=== PATIENT | male | born 2000 | race Caucasian/White ===

== ENCOUNTER 2024-04-11 00:26 | Observation (INO) ==
[2024-04-11] MEDS: OPTIRAY 320 100ml IV ONE (00:52)
--- NOTE | 2024-04-11 00:53 | Emergency Department Note ---
Impression & Plan Acute appendicitis, Abdominal pain ED Provider Note NAME: MINNIE ALEJANDRA AGE: 23 SEX: M : 2000 ARRIVES VIA: Walk-In INFORMANT: Patient, ED PROVIDER(S): Bi Garibay DO CHIEF COMPLAINT: Abdominal pain HPI: The patient is a 23-year-old male who presented to the emergency department for an evaluation of abdominal pain. The patient started having abdominal pain earlier this evening. The pain became worse. The patient presented to the emergency department for further evaluation. He denies having any rectal bleeding. He said some nausea but no vomiting. The pain worsens with ambulation as well as palpation on the right lower quadrant. The patient still has appendix. He states he had a similar episode a few weeks ago which did seem to resolve on its own. He was not seen at that time and had no imaging or laboratory studies. ROS: See above HPI for pertinent positives & negatives. A total of 10 systems reviewed and were otherwise negative. PAST MEDICAL HISTORY: See Below PAST SURGICAL HISTORY: See Below FAMILY HISTORY: See Below SOCIAL HISTORY: See Below HOME MEDICATIONS: See Below ALLERGIES: See Below VITALS: See Below PHYSICAL EXAMINATION: GENERAL: The patient is awake and alert. The patient is very anxious and appears to be uncomfortable. EYES: The conjunctivae are clear. The pupils are round and reactive. EARS, NOSE, MOUTH AND THROAT: The nose is without any evidence of any deformity. NECK: The neck is nontender and supple. RESPIRATORY: Normal respiratory effort is noted there is no evidence of wheezing rhonchi or rales CARDIOVASCULAR: Regular rate and rhythm noted there no murmurs rubs or gallops normal S1 normal S2. GASTROINTESTINAL: The abdomen was nondistended. There is tenderness in right lower quadrant with guarding in the right lower quadrant. MUSCULOSKELETAL/EXTREMITIES: There is no evidence of gross deformity full range of motion is noted in the hips and shoulders. SKIN: There is no obvious evidence of any rash. There are no petechiae, pallor or cyanosis noted. NEUROLOGIC: Patient is awake alert and oriented x3 MEDICAL DECISION MAKING: The patient is a 23-year-old male who presented to the emergency department for an evaluation of abdominal pain. The patient's history and physical exam appear to be consistent with acute appendicitis. CAT scan of the abdomen and pelvis was obtained and this does appear to be consistent with acute appendicitis. He was treated with IV Tylenol IV fluids and IV Zofran. He was also treated with IV Zosyn. I discussed the patient's laboratory and radiographic studies with him. I also discussed his condition with the on-call general surgical group. They have agreed to evaluate the patient in the emergency department for further management and disposition. Triage Nursing notes reviewed. Prior medical records reviewed Vital Signs: reviewed and remarkable for elevated blood pressure. Differential diagnosis: Etiologies such as appendicitis, diverticulitis, obstruction, inflammatory bowel disease, renal colic, PUD, biliary pathology, pancreatitis, mesenteric ischemia, aortic pathology, infections, genitourinary, UTI, perforated viscus, as well as others were entertained. ER treatment provided: See below Diagnostics interpreted by me: ECG: none Cardiac Monitoring: An order was placed for continuous cardiac monitoring. The monitor shows a rate of 86/min with sinus rhythm. Laboratory studies: As stated above and show below. Imaging studies: See below. Radiographic imaging was reviewed by myself Consultation(s): I discussed this case with Nathen who is on for the general surgical group. Past Med/Surg History Problem List (Updated 04/11/24 @ 01:39 by Bi Garibay DO) Abdominal pain (Acute) Acute appendicitis (Acute) Social History Smoking Status: Current every day smoker Tobacco Type: E-cigarettes / Vaping Preferred Language: Czech Feels Safe at Home: Yes Allergies Allergies Allergy/AdvReac Type Severity Reaction Status Date / Time No Known Allergies Allergy Unverified 04/11/24 01:21 Results & Data (ED) Vital Signs Vital Signs - 24 hr 04/11/24 00:30 04/11/24 01:27 04/11/24 01:28 Temperature 36.7 C Temperature Source Oral Pulse Rate 110 H 86 Pulse Rhythm Regular Pulse Strength Normal Respiratory Rate 20 Respiratory Effort / Characteristics Non-Labored Spontaneous Respiratory Depth Normal Respiratory Pattern Regular Blood Pressure 154/89 H Blood Pressure Mean 110 Blood Pressure Position Sitting Pulse Oximetry 99 98 Oxygen Delivery Method Room Air Room Air Sepsis Recent Fever Within 48 Hours No Sepsis New/Unexplained Change in Mental Status No Sepsis Action Taken by Nursing No Action Required Home Medications Current Medication List: was personally reviewed by me Laboratory Data Attestation: I reviewed the patient's lab results. 04/11/24 00:38 04/11/24 00:38 Lab Results 04/11/24 04/11/24 Range/Units 00:38 00:43 WBC 8.18 (4.8-10.8) K/ul RBC 5.78 (4.70-6.10) M/uL Hgb 16.1 (14.0-18.0) g/dl Hct 46.5 (42.0-52.0) % MCV 80.4 (80.0-100.0) fL MCH 27.9 (25.0-34.0) pg MCHC 34.6 (32.0-36.0) g/dL RDW Std Deviation 35.8 L (36.4-46.3) fL RDW Coeff of Ren 12.5 (11.5-14.5) % Plt Count 237 (130-400) K/uL MPV 8.8 L (9.4-12.4) fL Immature Gran % (Auto) 0.1 % Neut % (Auto) 71.7 % Lymph % (Auto) 16.1 % [place] % (Auto) 6.6 % Eos % (Auto) 5.0 % Baso % (Auto) 0.5 % Neut # (Auto) 5.86 (1.40-6.50) K/uL Lymph # (Auto) 1.32 (1.20-3.40) K/uL [place] # (Auto) 0.54 (0.11-0.59) K/uL Eos # (Auto) 0.41 (0.00-0.50) K/uL Baso # (Auto) 0.04 (0.00-0.20) K/uL Immature Gran # (Auto) 0.01 (0.01-0.20) K/uL Sodium 140 (136-145) mmol/L Potassium 3.5 (3.5-5.1) mmol/L Chloride 103 (98-107) mmol/L Carbon Dioxide 28 (21-32) mmol/L Anion Gap 9 (3-11) BUN 17 (6-23) mg/dl Creatinine 1.02 (0.6-1.4) mg/dl Est Cr Clr Drug Dosing 111.4 ml/min eGFR 105.91 BUN/Creatinine Ratio 16.7 (10-20) Glucose 98 (70-99(Fasting)) mg/dl Calcium 9.5 (8.6-10.3) mg/dl Total Bilirubin 0.6 (0.2-1.0) mg/dl AST 18 (13-39) U/L ALT 15 (7-52) U/L Alkaline Phosphatase 63 (34-104) U/L Total Protein 7.4 (6.0-8.3) gm/dl Albumin 5.4 H (3.4-5.0) gm/dl Globulin 2.0 L (2.5-4.0) gm/dl Albumin/Globulin Ratio 2.7 H (0.9-2) Lipase 24 (11-82) U/L Urine Color Yellow Urine Appearance Clear (Clear) Urine pH 5.5 (4.5-7.5) Ur Specific [place] 1.033 H (1.000-1.030) Urine Protein Negative (Negative) Urine Glucose (UA) Negative (Negative) Urine Ketones Trace H (Negative) Urine Blood Negative (Negative) Urine Nitrite Negative (Negative) Urine Bilirubin Negative (Negative) Urine Urobilinogen Negative (Negative) Ur Leukocyte Esterase Negative (Negative) Administered Medications Sodium Chloride (Nss) 1,000 mls @ 999 mls/hr IV .Q1H1M ONE Stop: 04/11/24 02:04 Last Admin: 04/11/24 01:21 Dose: 999 mls/hr Documented By: BRUCE Discontinued Medications Acetaminophen (Ofirmev) 1,000 mg in 100 mls @ 400 mls/hr IV NOW STA Stop: 04/11/24 01:18 Last Admin: 04/11/24 01:22 Dose: 400 mls/hr Documented By: BRUCE Ioversol (Optiray 320 100ml) 100 ml IV ONCE ONE Stop: 04/11/24 00:53 Last Admin: 04/11/24 00:52 Dose: 93 ml Documented By: MACARENA Ondansetron HCl (Ondansetron Inj 2 Mg/Ml 2 Ml Vial) 4 mg IV NOW STA Stop: 04/11/24 01:05 Last Admin: 04/11/24 01:21 Dose: 4 mg Documented By: BRUCE Imaging Data Attestation: I personally reviewed and interpreted this imaging study as follows: My Impression: CT of the abdomen and pelvis was obtained. My interpretation is swelling in the right lower quadrant with stranding consistent with acute appendicitis. Final report below. Radiologist's Impression: Abdomen/Pelvis CT 04/11/24 00:38 EXAM: CT abd pelvis IV con only CLINICAL HISTORY: 93 ML OPTIRAY 320, PAIN AT RLQ TECHNIQUE: Contiguous axial images were obtained from the level of the diaphragm to the pubic symphysis with intravenous contrast. Coronal and sagittal reconstructions were likewise performed and indicated to increase the sensitivity for detecting clinically relevant pathology. If IV contrast material had not been administered, the likelihood of detecting abnormalities relevant to the patient's condition would have been substantially decreased. CT scan was performed according to ALARA (as low as reasonable achievable). COMPARISON: None FINDINGS: The visualized lung bases are clear. The liver is normal in size and attenuation. No focal liver lesions are seen. There is no intra or extrahepatic biliary ductal dilatation. Hepatic vasculature is patent. The gallbladder is present. The spleen, pancreas, and adrenal glands are unremarkable. The kidneys are normal in size and attenuation. There is no hydronephrosis or perinephric fat stranding. No renal calculi or renal masses are identified. The ureters are normal in caliber and no ureteral calculi are seen. The bladder is normal in contour. Pelvic viscera are unremarkable. No focal or diffuse bowel wall thickening or evidence of bowel obstruction is identified. Appendix appears inflamed, with its maximum diameter measures about 9.6 mm. It is noted at the restrocecal position with moderate fat stranding in right iliac fossa. No obvious appendicolith or perforation at present. Abdominal and pelvic vasculature is patent. No adenopathy or fluid collections are seen. No aggressive appearing osseous lesions are identified. IMPRESSION: Acute appendicitis. Electronically signed by Shen Cooper 04-11-2024 01:34 AM Discharge Plan Visit Data Chief Complaint: Abdominal Pain Stated Complaint: SEVERE ABDOMINAL PAIN ED Provider: Bi Garibay Discharge Problem: Acute appendicitis, Abdominal pain Patient Disposition: Being Evaluated by Surgeon Forms Stand Alone Forms: [facility] Referrals Referrals: PCP,NO [Physician] - Discharge Problem: Acute appendicitis Qualifiers: Acute appendicitis type: with localized peritonitis Appendicitis gangrene presence: unspecified whether gangrene present Appendicitis perforation presence: unspecified whether perforation present Appendicitis abscess presence: unspecified whether abscess present Qualified Code(s): K35.30 - Acute appendicitis with localized peritonitis, without perforation or gangrene Abdominal pain Qualifiers: Abdominal location: right lower quadrant Qualified Code(s): R10.31 - Right lower quadrant pain
[2024-04-11 00:55] LABS: Appearance Urine Clear (Clear); Bilirubin Urine Negative (Negative); Blood Urine Negative (Negative); Color Urine Yellow; Glucose Urine UA Negative (Negative); Ketones Urine Trace (Negative); Leukocyte Esterase Urine Negative (Negative); Nitrite Urine Negative (Negative); Protein Urine Negative (Negative); Specific Gravity Urine 1.033 (1.000-1.030); Urobilinogen Urine Negative (Negative); pH Urine 5.5 (4.5-7.5)
[2024-04-11 00:58] LABS: Basophils # (auto) 0.04 K/uL (0.00-0.20); Basophils % (auto) 0.5 %; Eosinophils # (auto) 0.41 K/uL (0.00-0.50); Hematocrit (blood only) 46.5 % (42.0-52.0); Hemoglobin 16.1 g/dl (14.0-18.0); Immature Granulocytes # (auto) 0.01 K/uL (0.01-0.20); Immature Granulocytes % (auto) 0.1 %; Lymphocytes # (auto) 1.32 K/uL (1.20-3.40); Lymphocytes % (auto) 16.1 %; Mean Corpuscular Hemoglobin 27.9 pg (25.0-34.0); Mean Corpuscular Hgb Conc 34.6 g/dL (32.0-36.0); Mean Corpuscular Volume 80.4 fL (80.0-100.0); Mean Platelet Volume 8.8 fL (9.4-12.4); Monocytes # (auto) 0.54 K/uL (0.11-0.59); Monocytes % (auto) 6.6 %; Neutrophils # (auto) 5.86 K/uL (1.40-6.50); Neutrophils % (auto) 71.7 %; Platelet Count 237 K/uL (130-400); RDW Coefficient of Variation 12.5 % (11.5-14.5); RDW Standard Deviation 35.8 fL (36.4-46.3); Red Blood Count 5.78 M/uL (4.70-6.10); White Blood Count 8.18 K/ul (4.8-10.8)
[2024-04-11 01:21] LABS: Albumin Globulin Ratio 2.7 (0.9-2); Albumin Level 5.4 gm/dl (3.4-5.0); BUN Creatinine Ratio 16.7 (10-20); Bilirubin,Total 0.6 mg/dl (0.2-1.0); Calcium 9.5 mg/dl (8.6-10.3); Creatinine Clr Calc Pharmacy 111.4 ml/min; Potassium 3.5 mmol/L (3.5-5.1); Total Protein 7.4 gm/dl (6.0-8.3)
[2024-04-11] MEDS: SODIUM CHLORIDE 0.9% 1,000 ML IV ONE (01:21)
[2024-04-11] MEDS: ONDANSETRON INJ 2 MG/ML 2 ML VIAL IV STA (01:21)
[2024-04-11] MEDS: ACETAMINOPHEN 1,000 MG/100 ML VIAL IV STA (01:22)
--- NOTE | 2024-04-11 01:35 | CT Scan Report ---
EXAM: CT abd pelvis IV con only CLINICAL HISTORY: 93 ML OPTIRAY 320, PAIN AT RLQ TECHNIQUE: Contiguous axial images were obtained from the level of the diaphragm to the pubic symphysis with intravenous contrast. Coronal and sagittal reconstructions were likewise performed and indicated to increase the sensitivity for detecting clinically relevant pathology. If IV contrast material had not been administered, the likelihood of detecting abnormalities relevant to the patient's condition would have been substantially decreased. CT scan was performed according to ALARA (as low as reasonable achievable). COMPARISON: None FINDINGS: The visualized lung bases are clear. The liver is normal in size and attenuation. No focal liver lesions are seen. There is no intra or extrahepatic biliary ductal dilatation. Hepatic vasculature is patent. The gallbladder is present. The spleen, pancreas, and adrenal glands are unremarkable. The kidneys are normal in size and attenuation. There is no hydronephrosis or perinephric fat stranding. No renal calculi or renal masses are identified. The ureters are normal in caliber and no ureteral calculi are seen. The bladder is normal in contour. Pelvic viscera are unremarkable. No focal or diffuse bowel wall thickening or evidence of bowel obstruction is identified. Appendix appears inflamed, with its maximum diameter measures about 9.6 mm. It is noted at the restrocecal position with moderate fat stranding in right iliac fossa. No obvious appendicolith or perforation at present. Abdominal and pelvic vasculature is patent. No adenopathy or fluid collections are seen. No aggressive appearing osseous lesions are identified. IMPRESSION: Acute appendicitis. Electronically signed by Shen Cooper 04-11-2024 01:34 AM
[2024-04-11] MEDS ORDERED: MoRPHine SULFATE 4 MG/ML 1 ML CARP\\VIAL IV PRN ×3 (02:04→09:05)
[2024-04-11] MEDS ORDERED: ONDANSETRON INJ 2 MG/ML 2 ML VIAL IV PRN ×2 (02:04→07:52)
--- NOTE | 2024-04-11 02:04 | History & Physical Report ---
Date of Service April 11, 2024 Assessment & Plan (1) Acute appendicitis: Plan: Due to the patient's clinical presentation and findings on imaging he will be admitted to the surgical service proceeding as follows: N.p.o. status will be implemented We will provide analgesics Will provide antiemetics The treating physician in the emergency department has initiated antibiotics in form of Zosyn and these will continue Will hydrate him with IV fluids Will tentatively schedule the patient for an appendectomy by Dr. Agustin Patricia on 04/11/2024. Will use SCDs for DVT prevention, no chemical means due to planned surgery Additional recommendations with forthcoming based on operative findings and his postoperative recovery thereafter He will be a level 1 full code History of Present Illness Chief Complaint: Abdominal pain Primary Care Provider: Vernóica Ballesteros PA-C This is a 23-year-old male who presented to the emergency department secondary to abdominal pain. Patient notes that he had abdominal pain approximately 1 week ago that self resolved without any intervention. He notes over the past 24 hours she started to have some abdominal pain which is greatest in the right lower quadrant of his abdomen without any radiation or other mitigating factors. He says he has not had any emesis but did have some minor nausea. He denies any fevers. He notes he has never had any prior abdominal surgeries in the past. The patient notes that he does not get chest pain or shortness of breath with his day-to-day activities. Symptoms He presented the emergency department where he had labs and imaging which independent reviewed. The CT scan of the abdomen pelvis showed the patient has an inflamed appendix measuring approximate 9.6 mm. The appendix appeared to be retrocecal and had some fat stranding in the right iliac fossa. There is no obvious appendicolith or perforation noted. Labs included CBC were white blood cell count, hemoglobin, hematocrit, and platelet count were normal. Chemistry profile showed sodium and potassium as well as the BUN and creatinine were normal. Urinalysis was not indicative of infection. At the time of my interview the patient was resting comfortably in bed in no distress. The patient denies any allergies to medicines and notes he does not take any medicines. Concerning past medical history he denies any medical problems Concerning past surgical history denies prior surgeries Concerning social history the patient does not smoke but he does vape Concerning family history he does note that there is a significant family history of coronary artery disease. Allergies Allergy/AdvReac Type Severity Reaction Status Date / Time No Known Allergies Allergy Unverified 04/11/24 01:21 Past Med/Surg History Problem List Abdominal pain (Acute) Acute appendicitis (Acute) Social History Smoking Status: Current every day smoker Tobacco Type: E-cigarettes / Vaping Second Hand Exposure: Yes; Do You Dip or Chew Tobacco: No; Tobacco Cessation Education Requested by Patient: No Hx Alcohol Use: Yes Alcohol type: beer Hx Substance Use: Yes Last Used Substance Other:: over two years ago Substance Use Type Other:: Fentanyl Preferred Language: Mongolian Communication Ability: Effective Auto Machinist Required: No Beliefs That Will Affect Care: None Current Living Situation: Significant Other Other Information That Helps Us Care for You: No Feels Safe at Home: Yes Safety Concerns: Feels Safe At This Time, Afraid for Self, Afraid for Child/Children and Afraid for Others in Home Assistive Devices: None Review of Systems Review of Systems: All systems reviewed & are unremarkable except as noted in HPI & below Physical Exam Constitutional: WD/WN, vitals as above Eyes: no conjunctival abnormality ENMT: Ears: no hearing impairment and no external ear abnormality Mouth: no oropharynx abnormality Neck: trachea midline Respiratory: normal respiratory effort; no respiratory distress and no labored breathing Cardiovascular: Rate/Rhythm: regular rate and regular rhythm Vessels: posterior tibial pulses present and radial pulses present Gastrointestinal (Abdomen): Patient's abdomen is soft without distention or rigidity. There is no rebound tenderness or guarding at the time my exam but the patient did have significant pain with palpation in the right lower quadrant over McBurney's point Musculoskeletal: No calf tenderness Skin: no rashes Neurologic: moves all extremities Psychiatric: A+Ox3, euthymic affect Results & Data Results & Data Vital Signs (Past 12 Hours) Vital Signs Temp Pulse Resp BP Pulse Ox O2 Del Method 04/11/24 01:28 86 04/11/24 01:27 98 Room Air 04/11/24 00:30 36.7 C 110 H 20 154/89 H 99 Room Air Supervising Physician Co-Signing Physician Notes I personally saw and evaluated the patient with Jermain Ramsey PA-C and agree with the assessment and plan. 23-year-old with acute appendicitis His CT images and results were personally viewed and interpreted by myself Will plan on a laparoscopic appendectomy, possible open today Consent was obtained, risks discussed including bleeding, infection, leak, abscess PG Care Time/CCT Total # of Minutes Spent Total Time Spent with Patient: Total time spent is greater than 50% in coordination of care (as documented) at patient's floor/unit and/or counseling patient: Coding Level of Care Code 84599 INT INP/OBS CARE MIN Diagnoses Acute appendicitis K35.30 Acute appendicitis type: with localized peritonitis Appendicitis abscess presence: unspecified whether abscess present Appendicitis gangrene presence: unspecified whether gangrene present Appendicitis perforation presence: unspecified whether perforation present (1) Acute appendicitis Acute appendicitis type: with localized peritonitis Appendicitis abscess presence: unspecified whether abscess present Appendicitis gangrene presence: unspecified whether gangrene present Appendicitis perforation presence: unspecified whether perforation present Qualified Code(s): K35.30 - Acute appendicitis with localized peritonitis, without perforation or gangrene
[2024-04-11] MEDS: PIPERACILLIN/TAZOBACTAM 4.5 GM/100 ML BAG IV ONE (02:05)
[2024-04-11] MEDS: SODIUM CHLORIDE 0.9% 1,000 ML IV SCH (02:59)
--- OUTSIDE RECORDS SUMMARY | 2024-04-11 03:19 | External Medical Summary | Summary of Care ---
Author Name Unknown Organization [facility] Address [address] [place] [address] Phone [phone] Care Team Providers Care Exercise Instructor Name Role Phone Shalini Sargent PA-C Primary Care Provider Encounter Details Date Type Department Care Team ([facility] Contact Info) Description 11/10/2023 7:20 AM EDT Telemedicine Dermatology [address] [phone] Marcelo Gruber PA-C [address] [place] [phone] Acne vulgaris*; On isotretinoin therapy; Acne scarring Allergies No known active allergiesdocumented as of this encounter (statuses as of 11/10/2023) Medications Medication Sig Dispensed Refills Start Date End Date Status Triamcinolone Acetonide 0.1 % External Ointment (Aristocort) Apply to the hands twice daily for 1-2 weeks as needed 80 g 2 05/27/2023 Active ISOtretinoin 30 MG Oral Capsule Take 1 Capsule by mouth in the morning and 1 Capsule before bedtime. 60 Capsule 10/12/2023 Active documented as of this encounter (statuses as of 11/10/2023) Active Problems Problem Noted Date Diagnosed Date Opioid use, unspecified, in remission 08/17/2022 documented as of this encounter (statuses as of 11/10/2023) Resolved Problems Problem Noted Date Diagnosed Date Resolved Date Recurrent major depressive disorder 01/27/2021 08/17/2022 Opioid use disorder, severe, dependence 01/23/2021 08/17/2022 documented as of this encounter (statuses as of 11/10/2023) Immunizations Name Administration Dates Next Due DTaP Dipth/Tet/Acell Pertussis (Infanrix), Peds 11/09/2005 HPV Vaccine, 9-Valent 2019,06/26/2019,12/2019 IPV - Polio Virus Vaccine (Inact) 11/09/2005 MMR - Measles/Mumps/Rubella Vaccine 11/09/2005 Meningococcal Conjugate Vacc ine (Menactra/Menveo) 01/19/2017,10/28/2011 Seasonal Influenza, PF, 6 M & above, IM , (FluLaval or Fluzone) 02/05/2020,04/27/2019,04/28/2018,01/19 Seasonal Influenza, Quadriva lent, No Preserve, IM 02/15/2016,03/05/2015 Seasonal Influenza, Split, I IV3, With Preserve, Inj 12/30/2013,01/03/2013,01/30/2012 TDAP (age 10 and older)(Boostrix) 12/21/2019 TDAP, Age 7 and older, IM (Adacel) 10/28/2011 Varicella Vaccine (Chicken Pox) 12/05/2007 documented as of this encounter Social History Tobacco Use Types Packs/Day Years Used Date Smoking Tobacco: Never Smokeless Tobacco: Never Alcohol Use Standard Drinks/Week Comments No 0 (1 standard drink = 0.6 oz pur e alcohol) PHQ-2 Answer Date Recorded PHQ Adult Total Score 0 08/17/2022 Hunger Vital Sign Answer Date Recorded Within the past 12 months, y ou worried that your food would run out before you got the money to buy more. Never true 11/29/19 22 Within the past 12 months, t he food you bought just didn't last and you didn't have money to get more. Never true 11/28/2021 Utilities Answer Date Recorded Do you have trouble paying y our heating, water, or electric bill? (Adult - for ages 18 years and over) Not on file 10/05/2023 Is your family able to pay t he heat, water, or electric bill? (Household - for ages 0-17 years) Not on file 10/05/2023 Does your family have access to good internet? (Household - for ages 0-17 years) Not on file 10/05/2023 Social Connections Answer Date Recorded How often do you feel lonely or isolated from those around you? (Adult - for ages 18 years and over) Not on file 10/05/2023 Sex and Gender Information Value Date Recorded Sex Assigned at Male 01/27/2021 9:07 AM EDT Gender Identity Male 01/27/2021 9:07 AM EDT Sexual Orientation Straight 01/27/2021 9: 07 AM EDT Job Start Date Occupation Industry Not on file Not on file Not on file documented as of this encounter Progress Notes * Marcelo Gruber PA-C - 11/10/2023 7:23 AM EDT SUBJECTIVE: History of Present Illness: Melecio Jackson is a 23 year old male seen today for follow up of acne. 09/27/2023 (in office) Previously attempted treatments include: Isotretinoin 30 mg BID Patient notes his acne has been well controlled this past month. He has noticed he is becoming a little alejandra and anxious at times. Denies any significant depression, thoughts of self harm/SI or HI. + one episode of epistaxis in the past month and some muscle soreness. Denies: ALSTON, abd pain, bloody diarrhea. Weight 145-150 lbs Month 1 30 mg QD 900 mg complete Month 2 30 mg BID 1800 mg 2700 mg complete Month 3 30 mg BID 1800 mg 4500 mg complete Month 4 30 mg BID 1800 mg 6300 mg complete Month 5 30 mg BID 1800 mg 8100 mg complete Month 6 30 mg BID 1800 mg 9900 mg complete Month 7 30 mg BID 1800 mg 59977 mg complete REVIEW OF SYSTEMS: SKIN: No other new or changing moles. HEME/LYMPH: No new or enlarging lumps or bumps. CONSTITUTIONAL: No nausea, vomiting, fevers, chills, diarrhea. No recent unintended weight loss, night sweats, appetite or malaise. SKIN CANCER HX: none MEDICA TIONS: Current Outpatient Medications Medication Sig Dispense Refill Triamcinolone Acetonide 0.1 % External Ointment (Aristocort) Apply to the hands twice daily for 1-2weeks as needed 80 g 2 ISOtretinoin 30 MG Oral Capsule Take 1 Capsule by mouth in the morning and 1 Capsule before bedtime. 60 Capsule 0 No current facility-administered medications for this visit. ALLERG IES: Patient has no known allergies. OBJECT AMRIK: GEN: Healthy, alert, no distress, appears oriented, pleasant, and cooperative. SKIN: A. R>L lower cheek/chin/jawline with pink papules and scarring/PIH. Lips dry ASSESS MENT/PLAN: A. Acne vulgaris/scarring acne- moderate recalcitrant on isotretinoin therapy. Excellent response to Isotretinoin. Plan to d/c medication after his few remaining pills per patient preference (or now if desired). Will need to continue to monitor mood for up to 6 months after therapy. SE discussed inc luding anxiety, depression, SI/HI. Patient will monitor and call/send a message if needed/seek help. Drug should not be shared with anyone, blood should not be donated while taking isotretinoin and one month after course is completed. Patient program adherence needed Potential side effect profile: cheilitis, dry skin, joint pain, activation of inflammatory bowel dz, paronychias, headaches, photosensitivity, epistaxis, risk of depression/mood changes/psych problems -d/c medication with any signs of depression/psych problems. Keep an open line of communication with family members and friends to help monitor -call/send MyG with questions/concerns. Follow-up: 6-7 months or sooner PRN Patient alone today. Photo(s) taken, pt verbally consented to having photo(s) taken. Contact patient via cell phone Ok to leave results on message: Yes Patient Phone Numbers Applicable photos (if any) and chart reviewed by Dr. Dru Reed Presumed diagnoses, expected natural histories, and management options discussed with the patient at length. Questions were addressed and anticipatory guidance provided. They were instructed to contact me if additional questions, concerns, or problems develop in the interim. -There were no barriers to learning and no other pain was related to today's visit. The patient and/or person accompanying patient demonstrates understanding of the visit and treatment. Katherine Gruber PA-C 11/10/2023 7:23 AM Ref: SELF[[id number]] NO STREET ADDRESS AVAILABLE None (office) None (fax) PCP: SHALINI SARGENT [address] [place] [address] [phone] documented in this encounter Plan of Treatment Health Maintenance Due Date Last Done Comments COVID-19 Vaccine ( - season) 2022 Depression Screening 08/18/2023 08/17/2022 Influenza Vaccine (FLU shot) (#1) 2023 02/05/2020, 04/27/2019, 04/28/2018, Additional history exists DTaP,Tdap,and Td Vaccines (8 - Td or Tdap) 12/20/2029 12/21/2019, 10/28/2011, 11/09/2005, Additional history exists Hepatitis B Vaccine Completed 07/28/2001, 02/10/2001, 2000 MENINGOCOCCAL (MENACTRA/MENVEO) Completed 01/19/2017, 10/28/2011 HPV (Gardasil) Vaccine Completed 0, 06/26/2019, 04/27/2019 HIV Screening Addressed 12/13/2021 (Done elsewhere) Overridden with the intention of not completing the topic Hepatitis C Screening Addressed 12/13/2021 (Done elsewhere) Overridden with the intention of not completing the topic Pneumococcal Vaccine: Pediatrics (0 to 5 Years) and At-Risk Patients (6 to 64 Years) Aged Out No longer eligible based on patient's age to complete this topic documented as of this encounter Medical Devices Not on filedocumented as of this encounter Visit Diagnoses Diagnosis Acne vulgaris- Primary Other acne On isotretinoin therapy Encounter for long-term (current) use of other medications Acne scarring Scar condition and fibrosis of skin documented in this encounter Care Teams Exercise Instructor Relationship Specialty Start Date End Date Shalini Sargent PA-C [address] [place] [address] PCP - General Physician Lead Software Qa Engineer 08/27/17 documented as of this encounter
[2024-04-11] MEDS ORDERED: ONDANSETRON INJ 2 MG/ML 2 ML VIAL ONE ×2 (07:23→07:44)
[2024-04-11] MEDS ORDERED: PROPOFOL IV EMULSION 10 MG/ML 20 ML VIAL IV ONE ×2 (07:23→07:44)
[2024-04-11] MEDS ORDERED: ROCURONIUM BROMIDE 10 MG/ML 5 ML VIAL IV ONE ×2 (07:23→07:44)
[2024-04-11] MEDS ORDERED: fentaNYL citrate PF 100 MCG/2 ML VIAL ONE ×3 (07:23→08:30)
[2024-04-11] MEDS ORDERED: MIDAZOLAM HCL 1 MG/ML 2ML VIAL ONE ×2 (07:23→07:44)
[2024-04-11] MEDS ORDERED: DEXAMETHASONE SOD INJ 4 MG/ML VIAL ONE ×2 (07:23→07:44)
[2024-04-11] MEDS ORDERED: SUGAMMADEX SODIUM 200 MG/2 ML VIAL IV ONE (07:25)
[2024-04-11] MEDS ORDERED: SUCCINYLCHOLINE CHLORIDE 20 MG/ML 10 ML VIAL IV ONE (07:27)
[2024-04-11] MEDS: LR 15ML/HR IV SCH (07:39)
[2024-04-11] MEDS ORDERED: Nursing to Pharmacy Communication SCH (07:45)
--- NOTE | 2024-04-11 07:50 | Anesthesiology Consultation ---
Date of Service April 11, 2024 Assessment & Plan (1) Encounter for pre-operative examination: Chart Review Chart Review: Acceptable Risk for Surgery and Patient NOT seen in Pre Admission Testing Consults Requested none History Surgery Operation Date: 04/11/24 08:10 Proposed Procedures p Laparoscopic Appendectomy - Agustin Patricia DO Height/Weight Height: 5 ft 10 in Weight: 69.8 kg Allergies Allergy/AdvReac Type Severity Reaction Status Date / Time No Known Allergies Allergy Unverified 04/11/24 07:16 Medications Active Medications Generic Name Dose Route Start Last Admin Trade Name Freq PRN Reason Stop Dose Admin Sodium Chloride 1,000 mls @ 125 mls/hr 04/11/24 02:15 04/11/24 02:59 Nss IV 04/12/24 02:14 125 mls/hr .Q8H MIGEL Administration Lactated Ringer's 1,000 mls @ 15 mls/hr 04/11/24 06:00 04/11/24 07:39 Lr IV 04/11/24 16:00 0 mls/hr .Q24H MIGEL Infusion NPO Date Last Intake of Fluids: 04/10/24 Time Last Intake of Fluids: 18:00 Date Last Intake of Solids: 04/10/24 Time Last Intake of Solids: 18:00 Past Medical History Medical History No pertinent past medical history Past Surgical History Surgical History No pertinent past surgical history Social History Smoking Status: Current every day smoker Do You Dip or Chew Tobacco: No Hx Alcohol Use: Yes Alcohol type: beer alcohol intake frequency: a few times a month Hx Substance Use: Yes substance use type: painkillers Substance Use Type Other:: Fentanyl Last Used Substance Other:: over two years ago Physical Exam Vital Signs Last Vital Signs Temp 99.0 F 04/11/24 07:20 Pulse 76 04/11/24 07:20 Resp 18 04/11/24 07:20 BP 119/73 04/11/24 07:20 Pulse Ox 99 04/11/24 07:20 O2 Del Method Room Air 04/11/24 07:20 Testing Laboratory Results 04/11/24 00:38 04/11/24 00:38 Urine Color Yellow 04/11/24 00:43 Urine Appearance Clear (Clear) 04/11/24 00:43 Urine pH 5.5 (4.5-7.5) 04/11/24 00:43 Ur Specific [place] 1.033 (1.000-1.030) H 04/11/24 00:43 Urine Protein Negative (Negative) 04/11/24 00:43 Urine Glucose (UA) Negative (Negative) 04/11/24 00:43 Urine Ketones Trace (Negative) H 04/11/24 00:43 Urine Nitrite Negative (Negative) 04/11/24 00:43 Ur Leukocyte Esterase Negative (Negative) 04/11/24 00:43
[2024-04-11] MEDS ORDERED: ATROPINE SULFATE 0.1 MG/ML 10ML SYR IV PRN (07:52)
[2024-04-11] MEDS ORDERED: ePHEDrine sulfate 50 MG/ML AMP IV PRN (07:52)
[2024-04-11] MEDS: BUPIVACAINE/EPINEPHRINE 0.25% 1:200,000 30 ML VIAL ONE (08:37)
--- NOTE | 2024-04-11 08:56 | Post Operative Brief Note ---
PG Immediate Post Op with CF Date of Surgery April 11, 2024 Pre & Post Diagnosis Operation Date: 04/11/24 08:10 Pre-Op Diagnosis: Appendicitis Post-Op Diagnosis: Appendicitis without perforation I identified the patient and participated in the time-out.: Yes Procedure Operation Date: 04/11/24 08:10 Actual Procedures p Laparoscopic Appendectomy(Not Applicable) - Agustin Patricia DO Surgeon Agustin Patricia DO Streetcar Dispatcher Judah DUENAS Estimated Blood Loss 5 Findings See Below Acutely inflamed dilated appendix without perforation Specimens Specimen Description: a) Appendix. Anesthesia Type General Complications none Disposition Disposition: Recovery Room
--- NOTE | 2024-04-11 08:57 | Operative Report ---
PG Post Operative Report Pre & Post Diagnosis Operation Date: 04/11/24 08:10 Pre-Op Diagnosis: Appendicitis Post-Op Diagnosis: Appendicitis without perforation I identified the patient and participated in the time-out.: Yes Procedure Operation Date: 04/11/24 08:10 Actual Procedures p Laparoscopic Appendectomy(Not Applicable) - Agustin Patricia DO Surgeon Agustin Patricia DO Contact Worker Lithography Judah DUENAS Estimated Blood Loss 5 Findings See Below Acutely inflamed dilated appendix without perforation Specimens Appendix to pathology Drains None Anesthesia Type General Complications none Disposition Disposition: Recovery Room Indications 23-year-old male with acute appendicitis Description of Procedure The patient was brought to the OR and placed in the supine position and SCD's placed. At this time he underwent general endotracheal anesthesia without incident. At this time a Krause catheter was placed under sterile conditions. His abdomen was prepped and draped in the usual sterile fashion. He was given appropriate pre-operative antibiotics. A timeout was called, the procedure was verified as Laparoscopic appendectomy, possible open. Surgical, anesthesia and nursing teams agreed and the procedure was begun. After injection of 0.25% Marcaine with epinephrine, a supraumbilical incision was made using a #11 blade scalpel and carried down to the fascia with a hemostat. The abdomen was then elevated with towel clamps and entered using the Veress needle confirming position using the saline drop test. Pneumoperitoneum was established and 5mm trocar was placed. Laparoscope was introduced. No injury was seen from our entrance to the abdomen. At this time a 5mm suprapubic port and 12mm LLQ port were placed under direct visualization. The patient was placed in Trendelenburg and rotated to the left. At this time the appendix was visualized and the tip was freed and elevated toward the abdominal wall. The appendix appeared inflamed, dilated and edematous. A window was created in the mesoappendix at the base of the appendix. A 45mm rodríguez load stapler was then fired across the base of the appendix which appeared healthy. The mesoappendix was then taken using Harmonic device. The appendix was then placed in an Endocatch bag and removed through the LLQ port site. Staple line was inspected and was intact. Hemostasis was complete. A small amount of purulent fluid was suctioned out of the RLQ. The 12 mm port was then closed at the fascial level using a 0 Vicryl suture using the suture passer. All ports were removed under direct visualization and no bleeding was noted. The abdomen was desufflated and the skin was closed using 4-0 Monocryl in a subcuticular fashion. Sterile dressings were applied. Krause catheter was removed. The patient was then awakened from anesthesia having remained stable throughout the entire case and transported to PACU. All needle and sponge counts were correct x 2. The nurse practitioner was present and scrubbed for the entire case. She was essential in positioning, prepping and draping the patient, driving the laparoscope, closure of the incisions and placement of the dressings. I attest to the content of the Intraoperative Record and any orders documented therein. Any exceptions are noted below.
[2024-04-11] MEDS ORDERED: oxyCODONE HCL IR 5 MG TAB (IMMEDIATE RELEASE) PO PRN ×2 (09:04)
[2024-04-11] MEDS ORDERED: MoRPHine SULFATE 2 MG/ML CARP IV PRN (09:04)
[2024-04-11] MEDS ORDERED: ACETAMINOPHEN 325 MG TAB PO PRN (09:04)
[2024-04-11] MEDS: fentaNYL citrate PF 100 MCG/2 ML VIAL IV PRN (09:13)
[2024-04-11] MEDS: MEPERIDINE HCL 25 MG/ML CARP/VIAL IV STA (09:24)
[2024-04-11] MEDS: MEPERIDINE HCL 25 MG/ML CARP/VIAL ONE (09:24)
[2024-04-11] MEDS: PIPERACILLIN/TAZOBACTAM 4.5 GM/100 ML BAG IV SCH (10:29)
--- NOTE | 2024-04-11 10:32 | Anesthesiology Progress Note ---
Date of Service April 11, 2024 Anesthesia Post Procedure Vital Signs Vital Signs: Temp Pulse Pulse Pulse Pulse Resp BP 04/11/24 10:25 98.2 F 71 16 04/11/24 09:45 98.2 F 73 17 04/11/24 09:35 75 14 04/11/24 09:25 73 14 04/11/24 09:15 88 12 04/11/24 09:08 97.5 F L 98 H 13 04/11/24 07:20 99.0 F 76 76 18 04/11/24 06:30 97.9 F 74 15 04/11/24 02:45 98.4 F 80 18 04/11/24 02:28 87 18 128/82 04/11/24 02:04 89 18 04/11/24 01:28 86 04/11/24 01:27 04/11/24 00:30 98.1 F 110 H 20 154/89 H BP BP Pulse Ox O2 Del Method O2 Flow Rate 04/11/24 10:25 105/64 97 Room Air 04/11/24 09:45 114/68 97 Room Air 04/11/24 09:35 122/69 97 Room Air 04/11/24 09:25 118/65 97 Oxymask 2 04/11/24 09:15 135/68 100 Oxymask 4 04/11/24 09:08 135/74 99 Oxymask 6 04/11/24 07:20 119/73 99 Room Air 04/11/24 06:30 105/64 98 Room Air 04/11/24 02:45 133/77 97 Room Air 04/11/24 02:28 98 Room Air 04/11/24 02:04 128/82 98 Room Air 04/11/24 01:28 04/11/24 01:27 98 Room Air 04/11/24 00:30 99 Room Air Pain Intensity Right Lower Abdomen: Pain Intensity: 4 Abdomen: Pain Intensity: 5 Transfer of Care Handoff Completed per policy Notes Mental Status: alert / awake / arousable and participated in evaluation Patient Amnestic to Procedure: Yes Nausea / Vomiting: adequately controlled Pain: adequately controlled Airway Patency, RR, SpO2: stable & adequate BP & HR: stable & adequate Hydration State: stable & adequate Anesthetic Complications: no major complications apparent and Pt Satisfied with anesthetic care
[2024-04-11] MEDS: ACETAMINOPHEN 1,000 MG/100 ML VIAL IV PRN (10:40)
--- NOTE | 2024-04-11 12:23 | Discharge Summary ---
Date of Service April 11, 2024 Admission HPI Per Admitting Provider This is a 23-year-old male who presented to the emergency department secondary to abdominal pain. Patient notes that he had abdominal pain approximately 1 week ago that self resolved without any intervention. He notes over the past 24 hours he started to have some abdominal pain which is greatest in the right lower quadrant of his abdomen without any radiation or other mitigating factors. He says he has not had any emesis but did have some minor nausea. He denies any fevers. He notes he has never had any prior abdominal surgeries in the past. The patient notes that he does not get chest pain or shortness of breath with his day-to-day activities. Symptoms He presented the emergency department where he had labs and imaging which independent reviewed. The CT scan of the abdomen pelvis showed the patient has an inflamed appendix measuring approximate 9.6 mm. The appendix appeared to be retrocecal and had some fat stranding in the right iliac fossa. There is no obvious appendicolith or perforation noted. Labs included CBC were white blood cell count, hemoglobin, hematocrit, and platelet count were normal. Chemistry profile showed sodium and potassium as well as the BUN and creatinine were normal. Urinalysis was not indicative of infection. At the time of my interview the patient was resting comfortably in bed in no distress. The patient denies any allergies to medicines and notes he does not take any medicines. Concerning past medical history he denies any medical problems Concerning past surgical history denies prior surgeries Concerning social history the patient does not smoke but he does vape Concerning family history he does note that there is a significant family history of coronary artery disease. Principal Diagnosis acute appendicitis Discharge Exam Constitutional WD/WN, vitals as above no acute distress Respiratory normal respiratory effort Gastrointestinal (Abdomen) Inspection/Auscultation: + abdominal surgical incision Neurologic moves all extremities Psychiatric Orientation: alert and oriented x 3 Discharge Data Allergies Allergy/AdvReac Type Severity Reaction Status Date / Time No Known Allergies Allergy Unverified 04/11/24 07:16 Consultations 04/11/24 01:37 Consult General Surgery Stat Procedures Performed Operation Date: 04/11/24 08:10 Actual Procedures p Laparoscopic Appendectomy(Not Applicable) - Agustin Patricia, Ordered Studies 04/11/24 00:38 CT abd pelvis IV con only Stat Hospital Course (1) Acute appendicitis: This is a 23 yo male who presented to the [facility] ED on 04/11/24 with abdominal pain. Workup in the ED showed a CT a/p concerning for acute appendicitis (see HPI for full details). Patient made NPO with IVF and booked for the OR. On 04/11/24 the patient went to the OR with Dr Patricia for a Laparoscopic append ectomy. The patient tolerated the procedure well, see operative report for full details. Post operatively the patient's diet was advanced, pain managed on prn meds, and incisions clean/dry/intact. Post procedure the patient was deemed stable for discharge to home. The patient was given discharge instructions, follow up recommendations, and return precautions. Total Time Total Time Spent Total Time Spent (In Minutes): 10 Discharge Plan Discharge Items Patient Disposition: Home - Self-Care Reason For Visit: APPY Discharge Diagnosis: laparoscopic appendectomy Activity: Per Instructions section Lifting: No more than 10 pounds Bathing Comment: you can shower 04/12. No soaking in pools/bath for 2 weeks Exercise/Sports: Wait until after follow-up appointment Driving/Machine Use: no driving if taking narcotic pain medication Non-emergency contact: Surgeon Call non-emergency contact if: you have any medication questions, your symptoms worsen, your temperature is above 101.5, your wound has increased redness, your wound has increased drainage and your wound pain has increased Follow-up/Referrals: Agustin Patricia DO [Physician] - (call office for follow up in 2 weeks ) Verónica Ballesteros PA-C [Primary Care Provider] - Diet: Regular Addtl Attending Provider Instructions: You have surgical glue called dermabond on your surgical site incisions. You may shower with this on. This will tend to come off within a couple of weeks. Do not pick at it. You may purchase Tylenol and or Ibuprofen over the counter if needed for addition pain control over the next few days. Take per manufacturers instructions, Do not take more than 3 grams of Tylenol in 24 hours. Pending Studies at Discharge: Yes Studies:: surgical pathology Stand-Alone Forms: My [facility] TrustTeam, Smoking Cessation Medications and DC Order Discharge Orders: Discharge Order (Routine); Ordered 04/11/24 Ordered By: Judah Terry/Other Patient Handouts: Appendectomy Admission Data Admit Date/Time: 04/11/24 02:07 Attending Provider: Agustin Patricia Admit Provider: Agustin Patricia Primary Care Provider: Verónica Ballesteros Other Providers: Agustin Patricia Other Interventions: Discharge Summary Assessment (RN) Last Done: 04/11/24 12:14 Coding Level of Care Code 56030 IN/OBS DISCH 30 MIN/LESS Diagnoses Acute appendicitis K35.30 Acute appendicitis type: with localized peritonitis Appendicitis abscess presence: unspecified whether abscess present Appendicitis gangrene presence: unspecified whether gangrene present Appendicitis perforation presence: unspecified whether perforation present
== END 2024-04-11 12:36 | disposition home or self-care (01) | DRG 399 ==
LOC: ED 00:26 → INTOOBSV 02:07 → 3N 02:07